=== PATIENT | male | born 1990 | race Caucasian/White ===

== ENCOUNTER → 2020-08-25 18:19 | Outpatient (CLI) | payer BC, SELFPAY ==
[2017-08-27 12:59] VITALS: BMI 56.1
== END ==
PROVIDERS: Referring Provider Dermatology; Visit Provider Dermatology
DX: Z48.817 Encounter for surgical aftercare following surgery on the skin and subcutaneous tissue (principal)
CPT/HCPCS: 87070; 87077; 87186; 87205

== ENCOUNTER 2021-01-31 15:38 | Emergency (ER) | payer BC, SELFPAY ==
[2021-01-31 15:39] VITALS: BP 186/92; PULSE 97; RESP 16; TEMP 36.6; O2SAT 97; BMI 63.6
--- NOTE | 2021-01-31 15:45 | RAD_ITS ---
STUDY: X-RAY - RIGHT ANKLE REASON FOR EXAM: Male, 30 years old. ankle injury TECHNIQUE: 3 view(s) of the ankle. COMPARISON: None. FINDINGS: Normal visualized distal tibia and fibula. Normal medial and lateral malleoli. Normal tibiotalar articulation and ankle mortise. Normal visualized talus and calcaneus. The visualized subtalar, talonavicular, calcaneocuboid and tarsal articulations are normal. The soft tissue structures are unremarkable. RAD/Ankle min 3 Views IMPRESSION: Normal x-ray examination of the ankle. Electronically Signed: Antonio Cedeon MD at 16:11 EDT Tel , Service support ,
--- NOTE | 2021-01-31 21:14 | EDS_ITS ---
HPI History of Present Illness Chief Complaint: Lower Extremity Injury Narrative Narrative: 30-year-old male stating that he fell in his driveway because it was wet and muddy and he twisted his right ankle. He is ambulatory at his house and in the ED. He has mild pain without swelling or bruising. He denies any knee pain. He denies other injury at this time. [facility] Medical History Hypertension Shortness of breath Home Medications duloxetine 30 mg PO DAILY 01/31/21 [History Last Taken Unknown] Allergy/AdvReac Type Severity Reaction Status Date / Time amoxicillin Allergy Nausea/Vom/ Verified 08/27/17 13:00 Diarrhea Social History Smoking Status: Never smoker ROS ROS ED Constitutional Constitutional ED: Denies fever(s) or subjective Eyes Eyes: Denies blurry vision or diplopia ENT ENT ED: Denies rhinorrhea or sore throat Cardiovascular Cardiovascular: Denies chest pain, palpitations or racing heartbeat Respiratory/Chest Respiratory/Chest: Denies cough, dyspnea or sputum Gastrointestinal Gastrointestinal: Denies abdominal pain, nausea or vomiting Genitourinary Genitourinary ED: Denies dysuria or hematuria Musculoskeletal Musculoskeletal: Reports other Details: Right ankle pain ; Denies back pain or neck pain Integumentary Denies abscess or rash Neurologic Neurologic: Denies headache(s) or paresthesias Psychiatric Psychiatric: Denies anxiety or depression EXAM Physical Exam Const Vital Signs: 01/31/21 15:39 Temperature 97.8 F Temperature Source Temporal Pulse Rate 97 Respiratory Rate 16 Blood Pressure 186/92 H Blood Pressure Mean 123 Pulse Ox 97 Oxygen Delivery Method Room Air Positive well nourished General Appearance ED: NAD HEENT normocephalic and atraumatic Resp normal respiratory effort and clear to auscultation bilaterally Cardio regular rate and regular rhythm Extremity Extremity Narrative: Mild tenderness to palpation of the right lateral malleoli. There is no swelling or ecchymosis present. Right foot is neurovascular intact retractable all 5 toes. No pain over the proximal fibula. Psych mental status grossly normal Skin Lesions: no lesions Rashes: no rashes MDM MDM MDM Narrative Medical decision making narrative: Patient presenting with right ankle pain. He is ambulatory. His physical exam is unremarkable. X-ray of the right ankle and my interpretation shows no acute fracture or subluxation. Patient is placed in Yuri wrap and Aircast. He denies needing crutches. He will be discharged home in stable condition. Impression: 1. Right ankle sprain Radiography Diagnostic Testing: Radiology Impression Ankle X-Ray 01/31/21 15:45 IMPRESSION: Normal x-ray examination of the ankle. Electronically Signed: Antonio Cedeno MD at 16:11 EDT Tel , Service support , Discharge Plan Triage Chief Complaint: Lower Extremity Injury ED Provider: Mark Verdugo Dx/Rx/DC Orders Instructions: ED Ankle Sprain (Adult) Prescriptions: No Action duloxetine 30 mg capsule,delayed release(DR/EC) 30 mg PO DAILY RF: 0 Primary Care Provider: Dariela Corado Referrals: Tamra Simental MD [STAFF PHYSICIAN] - As soon as possible Care Physician,No Primary [NON-STAFF] - Disposition Disposition: Home, Self Care Discharge Date/Time: 01/31/21 16:46
== END 2021-01-31 16:46 | disposition home or self-care (01) ==
LOC: ED 16:41
PROVIDERS: Emergency Provider Student in an Organized Health Care Education/Training Program; PCP Internal Medicine
DX: S93.401A Sprain of unspecified ligament of right ankle, initial encounter (principal); X50.1XXA Overexertion from prolonged static or awkward postures, initial encounter; Z79.899 Other long term (current) drug therapy
CPT/HCPCS: 73610; 99283

== ENCOUNTER 2023-07-25 15:45 | Emergency (ER) | payer OTHER, SELFPAY ==
[2023-07-25 15:46] VITALS: BP 161/83; PULSE 105; RESP 16; TEMP 36.4; O2SAT 98
--- NOTE | 2023-07-25 15:58 | EKG12_ITS ---
Test Reason : Blood Pressure : / mmHG Vent. Rate : 086 BPM Atrial Rate : 086 BPM P-R Int : 144 ms QRS Dur : 098 ms QT Int : 366 ms P-R-T Axes : 045 -01 011 degrees QTc Int : 437 ms Normal sinus rhythm Normal ECG Confirmed by TARIQ HAIRSTON, LINDA ([id number]), purchasing expeditor ZBIGNIEW LARSEN ([id number]) on 07/26/2023 10:09:59 AM Referred By: Confirmed By:ILNDA POTTER MD
--- NOTE | 2023-07-25 16:11 | RAD_ITS ---
INDICATION: chest pain EXAMINATION/TECHNIQUE: X-RAY - XR Chest 1 View COMPARISON: None. FINDINGS: The lungs are clear. The cardiomediastinal silhouette is unremarkable. No pleural effusion or pneumothorax. No acute osseous abnormalities. RAD/Chest 1 View (Portable) IMPRESSION: No acute radiographic abnormalities. Electronically Signed: Nicola Olivas MD at 17:35 EST ,
[2023-07-25 16:13] LABS: Absolute Neutrophil Count 3.2 X10^3/uL (2.0-7.7); Basophil# 0.05 X10^3/uL; Basophil% 0.8 % (0-1); Eosinophil# 0.16 X10^3/uL; Eosinophils% 2.6 % (0-5); Hematocrit 45.5 % (40-54); Hemoglobin 14.9 g/dL (13.0-16.5); Lymphocyte % 38.8 % (19-41); Mean Corp Hgb Conc 32.7 g/dL (32-36); Mean Corpuscular Hgb 28.7 pg (27.0-32.0); Mean Corpuscular Volume 87.7 fL (80-94); Mean Platelet Vol. 10.2 fl (6.2-12.0); Monocyte# 0.38 X10^3/uL; Monocyte% 6.1 % (0-10); NRBC Flagged by Analyzer 0 % (0-5); Neutrophil # 3.17 X10^3/uL (2.7-7.7); Neutrophil % 51.2 % (47-70); Platelet Count 263 K/mm3 (150-450); RBC Distribution Width CV 12.8 % (11.6-14.6); RBC Distribution Width SD 40.9 fl (35.1-43.9); Red Blood Count 5.19 M/mm3 (4.6-6.2); White Blood Count 6.2 K/mm3 (4.4-11.0)
[2023-07-25 16:15] VITALS: BP 146/72; BP 167/96; BP 182/119; PULSE 85; PULSE 91; PULSE 99
[2023-07-25 16:36] LABS: Anion Gap 6 (5-15); BUN 12 mg/dL (7-18); Calcium,Total 9.4 mg/dL (8.5-10.1); Chloride 108 mmol/L (98-107); EST Glomerular Filtration Rate 74 mL/min (>60); Est Glom Filt Rate - Afr Amer 90 mL/min (>60); Glucose 125 mg/dL (74-106); Potassium 3.8 mmol/L (3.5-5.1); Sodium Level 141 mmol/L (136-145); Troponin-I HS 4 pg/mL (3.0-78.0)
[2023-07-25 17:07] VITALS: O2SAT 96
[2023-07-25 17:08] VITALS: BP 156/96
--- NOTE | 2023-07-25 17:29 | EX.ED.DYSGE1 ---
HPI History of Present Illness Chief Complaint: Syncope Narrative Narrative: 33-year-old male presenting with an episode of syncope patient states he was on the toilet having a bowel movement and postop started to feel little lightheaded. He stood up once and then states he fainted. He fell he does admit he hit his head but he does not have any visual disturbance, headache, nausea, vomiting. He states he was out for second and was able to get up and walk after the fact reports incident for his father who called relatives on the toilet.Patient states currently feels well. No chest pain, palpitations, shortness of breath. No fever, chills. No nausea, vomiting. No headache currently. Patient states has been otherwise healthy is feeling better prior to this. Denies cardiac history. No history of cardiac in the family which occurred suddenly. No history of cardiac disease at young age. [facility] Medical History Hypertension Shortness of breath Home Medications duloxetine 30 mg capsule,delayed release 30 mg PO DAILY 01/31/21 [History Last Taken Unknown] Allergy/AdvReac Type Severity Reaction Status Date / Time amoxicillin AdvReac Nausea/Vom/ Verified 07/25/23 15:59 Diarrhea Social History Smoking Status: Never smoker ROS ROS ED Constitutional Constitutional ED: Denies chills, fever(s) or sweats Eyes Eyes: Denies blurry vision or change in vision ENT ENT ED: Denies ear pain or sore throat Cardiovascular Cardiovascular: Denies chest pain, palpitations or racing heartbeat Respiratory/Chest Respiratory/Chest: Denies cough, dyspnea or sputum Gastrointestinal Gastrointestinal: Denies abdominal pain, constipation, diarrhea, nausea or vomiting Genitourinary Genitourinary ED: Denies dysuria, hematuria or urinary frequency Musculoskeletal Musculoskeletal: Denies arthralgias, myalgias or neck pain Integumentary Denies abscess, Abrasions or rash Neurologic Neurologic: Denies headache(s), paresthesias or weakness Psychiatric Psychiatric: Denies anxiety, depression, suicidal ideation or suicidal thoughts Endocrine Endocrinology: Denies polydipsia or polyuria EXAM Physical Exam Const Vital Signs: 07/25/23 15:46 07/25/23 16:15 07/25/23 17:07 Temperature 97.6 F L Temperature Source Temporal Pulse Rate 105 H Pulse Rate [Lying] 85 Pulse Rate [Sitting (for 1 minute prior to obtaining)] 91 Pulse Rate [Standing (for 1 minute prior to obtaining)] 99 Respiratory Rate 16 Respiratory Effort Blood Pressure 161/83 H Blood Pressure [Lying] 146/72 H Blood Pressure [Sitting (for 1 minute prior to obtaining)] 167/96 H Blood Pressure [Standing (for 1 minute prior to obtaining)] 182/119 H Blood Pressure Mean 109 Blood Pressure Mean [Lying] 96 Blood Pressure Mean [Sitting (for 1 minute prior to obtaining)] 119 Blood Pressure Mean [Standing (for 1 minute prior to obtaining)] 140 Pulse Ox 98 96 Oxygen Delivery Method Room Air Room Air 07/25/23 17:08 07/25/23 17:08 Temperature Temperature Source Pulse Rate Pulse Rate [Lying] Pulse Rate [Sitting (for 1 minute prior to obtaining)] Pulse Rate [Standing (for 1 minute prior to obtaining)] Respiratory Rate Respiratory Effort Normal Blood Pressure 156/96 H Blood Pressure [Lying] Blood Pressure [Sitting (for 1 minute prior to obtaining)] Blood Pressure [Standing (for 1 minute prior to obtaining)] Blood Pressure Mean 116 Blood Pressure Mean [Lying] Blood Pressure Mean [Sitting (for 1 minute prior to obtaining)] Blood Pressure Mean [Standing (for 1 minute prior to obtaining)] Pulse Ox Oxygen Delivery Method Positive well nourished General Appearance ED: NAD; Negative for pallor HEENT Reports moist mucous membranes Eyes PERRL and EOMs intact bilaterally Neck no lymphadenopathy Chest Wall inspection of chest normal Resp normal respiratory effort and clear to auscultation bilaterally Auscultation: Negative for rales, rhonchi or wheezes Cardio regular rate and regular rhythm GI normal to inspection, nondistended, normoactive bowel sounds Neuro oriented x3 and CN's II-XII intact bilaterally Sensorium / Orientation: alert Motor Exam: strength 5/5 throughout Psych mental status grossly normal Skin no rashes or lesions noted General Skin Exam: Negative for jaundice or pallor MDM MDM MDM Narrative Medical decision making narrative: Patient presenting with syncopal episode. Differential includes dehydration, anemia, orthostatic hypotension, vasovagal syncope. CBC was obtained to assess for blood cell count, hemoglobin. BMP to assess renal function, electrolytes, glucose. High-sensitivity troponin EKG to assess for ischemia. CBC and BMP unremarkable. High-sensitivity troponin is 4. EKG sinus rhythm at 86 bpm without sign of ischemic change or ectopy on my interpretation. Chest x-ray shows no acute process on my interpretation. Patient symptoms most consistent with a vasovagal syncope as he was going to the restroom prior to having episode. We discussed this at length. Orthostatic vital signs are negative. Patient did have questions about his elevated blood pressures today. I recommend he keep his blood pressure diary. He states he can borrow his father's blood pressure cuff. Return precautions were discussed. Impression: 1. Syncope Lab Data Attestation: I reviewed the patient's lab results. Labs: Laboratory Results - last 24 hr 07/25/23 16:05 WBC 6.2 RBC 5.19 Hgb 14.9 Hct 45.5 MCV 87.7 MCH 28.7 MCHC 32.7 RDW Std Deviation 40.9 RDW Coeff of Nitza 12.8 Plt Count 263 MPV 10.2 Immature Gran % (Auto) 0.500 Neut % (Auto) 51.2 Lymph % (Auto) 38.8 [place] % (Auto) 6.1 Eos % (Auto) 2.6 Baso % (Auto) 0.8 Absolute Neuts (auto) 3.2 Absolute Lymphs (auto) 2.40 Nucleated RBC % 0 Sodium 141 Potassium 3.8 Chloride 108 H Carbon Dioxide 27.0 Anion Gap 6 BUN 12 Creatinine 1.20 Est GFR (MDRD) Af Amer 90 Est GFR (MDRD) Non-Af 74 BUN/Creatinine Ratio 10.0 Glucose 125 H Calcium 9.4 Troponin I High Sens 4 Radiography Diagnostic Testing: Clinical Impression(s) from Imaging Studies Chest X-Ray 07/25/23 16:11 IMPRESSION: No acute radiographic abnormalities. Electronically Signed: Nicola Olivas MD at 17:35 EST , Discharge Plan Triage Chief Complaint: Syncope ED Provider: Mark Verdugo Dx/Rx/DC Orders Instructions: ED Near-Fainting- Vagal Reaction Prescriptions: No Action duloxetine 30 mg capsule,delayed release(DR/EC) 30 mg PO DAILY Patient Comments: TAKE 1 CAPSULE BY MOUTH ONCE DAILY MAY INCREASE TO 1 CAPSULE TWICE DAILY IN 2 4 WEEKS IF NEEDED Primary Care Provider: Dariela Corado Referrals: Dariela Corado MD [Primary Care Provider] - Disposition Disposition: Home, Self Care Discharge Date/Time: 07/25/23 17:36
--- OUTSIDE RECORDS SUMMARY | 2023-07-25 17:29 | XMS RPT_ITS | CCD ---
Author Name Unknown Address [address] [place] [address] Organization [facility] Care Team Providers Care Pipe Wrapping Machine Operator Name Role Phone Rob Corado MD Primary Care Provider JEFFY HUGHES Attending Unavailable GRISEL SHELTON Referring Unavailable ROB CORADO Primary Care Unavailable GRISEL SHELTON Referring Unavailable ROB CORADO Primary Care Unavailable GRISEL SHELTON Referring Unavailable ROB CORADO Primary Care Unavailable GRISEL SHELTON Attending Unavailable ROB CORADO Primary Care Unavailable Allergies Allergy Classification Reported Allergen(s) Allergy Type Date of Onset Reaction(s) Facility (5 sources) Amoxicillin; Translations: [AMOXICILLIN] Drug Allergy 09-23-2006 [facility] Work Phone: Medications Completed/Discontinued Medications Medication Drug Class(es) Dates Sig (Normalized) Sig (Original) DULoxetine 30 mg delayed release oral capsule (5 sources) Serotonin and Norepinephrine Reuptake Inhibitor Start: 07-15-2020 End: 02-21-2023 take 1 capsule by mouth once daily, then take 1 capsule by mouth twice daily DULoxetine (CYMBALTA) 30 mg capsule Indications: Depression, unspecified depression type Take 1 capsule by mouth once daily. make increase to one capsule twice daily in 2 to 4 weeks if needed 30 capsule 11 02/21/2023 Active Problems Active Problems Problem Classification Problem Date Documented Da te Episodic/Chronic Headache; including migraine (1 source) Headache; Translations: [Nonintractable episodic headache, unspecified headache type] 02-21-2023 Episodic Immunizations and screening for infectious disease (1 source) Patient encounter status; Translations: [Encounter for immunization] 02-21-2023 Episodic Mood disorders (5 sources) Depressive disorder; Translations: [Other specified depressive episodes] Onset: 09-23-2006 09-23-2006 Chronic Other connective tissue disease (1 source) Pain in right foot; Translations: [Pain in right foot] 02-21-2023 Episodic Other ear and sense organ disorders (1 source) Otalgia, right ear; Translations: [Otalgia, unspecified] Episodic Other injuries and conditions due to external causes (1 source) Villarreal injury; Translations: [Unspecified injury of left lower leg, initial encounter] 02-21-2023 Episodic Other male genital disorders (1 source) Bilateral testicular pain; Translations: [Right testicular pain] 02-21-2023 Episodic Other male genital disorders (1 source) Large testicle; Translations: [Other specified disorders of the male genital organs] 02-21-2023 Episodic Other male genital disorders (1 source) Disorder of male genital organ; Translations: [Hydrocele, unspecified] Onset: 03-01-2023 03-01-2023 Episodic Other male genital disorders (1 source) Hydrocele, unspecified; Translations: [Hydrocele, bilateral] Onset: 03-01-2023 Episodic Other male genital disorders (1 source) Right testicular pain; Translations: [Pain in both testicles] Onset: 03-01-2023 Episodic Other male genital disorders (1 source) Left testicular pain; Translations: [Pain in both testicles] Onset: 03-01-2023 Episodic Other male genital disorders (1 source) Other specified disorders of the male genital organs; Translations: [Enlarged testicle] Onset: 03-01-2023 Episodic Other nervous system disorders (4 sources) Carpal tunnel syndrome; Translations: [Carpal tunnel syndrome, unspecified upper limb] Onset: 03-30-2011 07-15-2020 Chronic Other nervous system disorders (1 source) Numbness of foot ; Translations: [Anesthesia of skin] 02-21-2023 Episodic Other non-traumatic joint disorders (1 source) Pain in elbow; Translations: [Pain in right elbow] 02-21-2023 Episodic Other nutritional; endocrine; and metabolic disorders (5 sources) Body mass index 40+ - severely obese; Translations: [Morbid (severe) obesity due to excess calories] Onset: 09-23-2006 11-21-2017 Chronic Other nutritional; endocrine; and metabolic disorders (1 source) Morbid (severe) obesity due to excess calories; Translations: [Obesity, Class III, BMI 40-49.9 (morbid obesity) (HCC)] Onset: 11-21-2017 Chronic Other upper respiratory infections (1 source) Viral upper respiratory tract infection; Translations: [Acute upper respiratory infection, unspecified] Episodic Past or Other Problems Problem Classification Problem Date Documented Date Episodic/Chronic Other circulatory disease (4 sources) Elevated blood-pressure reading without diagnosis of hypertension; Translations: [Elevated blood-pressure reading, without diagnosis of hypertension] Onset: 09-23-2006 09-23-2006 Episodic Other complications of (4 sources) Gestational trophoblastic disease; Translations: [Hydatidiform mole, unspecified] Onset: 03-30-2011 07-15-2020 Episodic Residual codes; unclassified (4 sources) Family history of disorder; Translations: [Family history of other specified conditions] Onset: 09-23-2006 09-23-2006 Episodic Results Test Name Value Interpretation Reference Range Facil ity Vital Signs Date Time Vital Sign Value Performing Clinician Jairo pantoja 02-21-2023 07:46-0400 Body height 179.1 cm Rgisel Shelton WHEEL AND CASTER REPAIRER.CLINICAL DATA MANAGEMENT DIRECTOR Work Phone: [facility] 02-21-2023 07:46-0400 Body weight 202.3 kg Grisel Shelton WHEEL AND CASTER REPAIRER.CLINICAL DATA MANAGEMENT DIRECTOR Work Phone: [facility] 02-21-2023 07:46-0400 Diastolic blood pressure 82 mm[Hg] Grisel Shelton WHEEL AND CASTER REPAIRER.CLINICAL DATA MANAGEMENT DIRECTOR Work Phone: [facility] 02-21-2023 07:46-0400 Respiratory rate 16 /min Grisel Shelton WHEEL AND CASTER REPAIRER.CLINICAL DATA MANAGEMENT DIRECTOR Work Phone: [facility] 02-21-2023 07:46-0400 Systolic blood pressure 132 mm[Hg] Grisel Shelton WHEEL AND CASTER REPAIRER.CLINICAL DATA MANAGEMENT DIRECTOR Work Phone: [facility] 11-05-2021 19:24-0400 Body temperature 98.49 [degF] Mireya Polo PA-C Work Phone: [facility] 11-05-2021 19:24-0400 Body weight 196.86 kg Mireya Polo PA-C Work Phone: [facility] 11-05-2021 19:24-0400 Diastolic blood pressure 86 mm[Hg] Mireya Athy PA-C Work Phone: [facility] 11-05-2021 19:24-0400 Heart rate 90 /min Mireya Athy PA-C Work Phone: [facility] 11-05-2021 19:24-0400 Respiratory rate 18 /min Mireya Athy PA-C Work Phone: [facility] 11-05-2021 19:24-0400 SaO2% (BldA) [Mass fraction] 97 % Mireya Athy PA-C Work Phone: [facility] 11-05-2021 19:24-0400 Systolic blood pressure 138 mm[Hg] Mireya Athy PA-C Work Phone: [facility] Encounters Encounter Date Encounter Type Care Provider Facility Start: 03-01-2023 End: 03-02-2023 ambulatory JEFFY MONTEROONEY Facility:[facility] Start: 02-28-2023 Chart abstracting Afua orlando [facility] Work Phone: Psychology Start: 02-28-2023 End: 02-28-2023 ambulatory GRISEL SHELTON Facility:[facility] Start: 02-21-2023 Telephone encounter Afua mccarthy [facility] Work Phone: Psychology Plan of Treatment Date Care Activity Detail Author Start: 03-18-2023 Influenza vaccination [facility] Start: 03-18-2022 Influenza vaccination INFLUENZA (Season Ended) [facility] Start: 01-25-2022 COVID-19 VACCINE (3 - Booster for Pfizer series) COVID-19 VACCINE (3 - Booster for Pfizer series) [facility] Start: 11-05-2021 End: 11-19-2021 Influenza virus A and B RNA and SARS-CoV-2 (COVID-19) N gene panel - Respiratory specimen by JOVANY with probe detection COVID WITH FLUA+B, ROUTINE Microbiology Routine Viral URI Expected: 11/05/2021, Expires: 11/19/2021 [facility] Work Phone: Immunizations Immunization Date Immunization Notes Care Provider Juvencio felipe 03-07-2006 hepatitis B vaccine, pediatric or pediatric/adolescent dosage Mireya IVY-Slava Work Phone: [facility] Work Phone: 03-07-2006 tetanus toxoid, reduced diphtheria toxoid, and acellular pertussis vaccine, adsorbed Mireya Christ PA-C Work Phone: [facility] Work Phone: 03-07-2006 hepatitis B vaccine, unspecified formulation Afua Guthrieotto [facility] Work Phone: [facility] 11-30-2002 hepatitis B vaccine, pediatric or pediatric/adolescent dosage Mireya IVY-C Work Phone: [facility] Work Phone: NEGATED: Highlighted row has not occurred!04-05-2023 COVID-19 vaccine, age 12+ yr, bivalent (PFIZER-BIONTECH) Grisel Shelton WHEEL AND CASTER REPAIRER.CLINICAL DATA MANAGEMENT DIRECTOR Work Phone: [facility] Work Phone: NEGATED: Highlighted row has not occurred!04-05-2023 hepatitis B vaccine, adult dosage Grisel Shelton WHEEL AND CASTER REPAIRER.CLINICAL DATA MANAGEMENT DIRECTOR Work Phone: [facility] Work Phone: NEGATED: Highlighted row has not occurred!04-05-2023 tetanus toxoid, reduced diphtheria toxoid, and acellular pertussis vaccine, adsorbed Grisel Shelton WHEEL AND CASTER REPAIRER.CLINICAL DATA MANAGEMENT DIRECTOR Work Phone: [facility] Work Phone: Payers Date Payer Category Payer Unknown [employer]OLO FRANCO PPO [id number] 2019-Present [phone] [address] [place] [address] PPO [id number] 2018 Private Health Insurance [facility] [employer] CHOICE PLUS [id number] 2018-Present [phone] [address] [address] [place] [address] [facility] [place] [place] [id number] 2018 Unknown [id number] Social History Date Type Detail Facility Start: 07-15-2020 End: 02-21-2023 Tobacco smoking status NHIS Never smoked tobacco [facility] Work Phone: Start: 07-15-2020 End: 02-21-2023 Tobacco use and exposure Smokeless tobacco non-user [facility] Work Phone: Start: 11-05-2021 End: 02-21-2023 Alcohol intake Current drinker of alcohol (finding) [facility] Start: 08-14-2020 History SDOH Alcohol Frequency 4 [facility] Start: 08-14-2020 History SDOH Alcohol Std Drinks 1 [facility] Start: 08-14-2020 History SDOH Alcohol Binge 2 [facility] Start: 07-15-2020 History SDOH Alcohol Comment occasionally [facility] Start: 08-14-2020 History SDOH Social Connections Phone 5 [facility] Start: 08-14-2020 History SDOH Social Connections Meetings 98 [facility] Start: 08-14-2020 History SDOH Social Connections Living 7 [facility] Start: 08-14-2020 History SDOH Stress 3 [facility] Start: 08-13-2020 Education 16 [facility] Start: 1990 Sex Assigned At Male [facility] Start: 02-14-2023 End: 03-01-2023 History of Social function [facility] Start: 02-14-2023 End: 03-01-2023 Social connection and isolation panel [facility] Do you belong to any clubs or organizations such as presybeterian groups, unions, fraternal or athletic groups, or school groups? Yes [facility] Are you now , , , , never or living with a partner? Never [facility] How often to you hav e a drink containing alcohol? Monthly or less [facility] How many standard dr inks containing alcohol do you have on a typical day? 1 or 2 [facility] How often do you hav e 6 or more drinks on 1 occasion? Never [facility] How hard is it for y ou to pay for the very basics like food, housing, medical care, and heating Not very hard [facility] Adult Depression Screening Assessment 2 [facility] Do you feel stress - tense, restless, nervous, or anxious, or unable to sleep at night because your mind is troubled all the time - these days [OSQ] To some extent [facility] (I/We) worried wheth er (my/our) food would run out before (I/we) got money to buy more. Sometimes true [facility] In the past 12 month s, was there a time when you were not able to pay the mortgage or rent on time? No [facility] Start: 08-14-2020 Gender identity Identifies as male gender (finding) [facility] Start: 08-14-2020 Sexual orientation Homosexual (finding) [facility] Clinical Notes 11-05-2021 to 03-01-2023 Afua Nguyen [facility] - 02/28/2023 8:51 AM EDTTelephone Encounter - Afua Nguyen [facility] - 02/21/2023 10:56 AM Grisel Rosales APRN.CLINICAL DATA MANAGEMENT DIRECTOR - 02/21/2023 8:00 AM EDTPatient Instructions Note Date & Type Note Facility 03-01-2023 Note HNO ID: [id number] Author: Jeffy Hughes PA-C Service: ? Author Type: Physician Geothermal Hvac Technician Type: Progress Notes Filed: 03/01/2023 5:10 PM Note Text: [facility] NEW CONSULT PATIENT CLINIC NOTE SERVICE DATE: 03/01/2023 SERVICE TIME: 4:11 PM NAME: Arden Dickson Consultation requested by Rob Corado MD for an opinion regarding Bilateral hydrocele My final recommendations communicated back to the requesting physician by way of our shared Medical record. CHIEF COMPLAINT: Bilateral Hydrocele HISTORY OF PRESENT ILLNESS: Arden Dickson is a 32 year old male presenting for New Patient Consult for Bilateral Hydrocele Left > Right The patient reports he has had pain L > R for about 1 year He also has so pelvic floor dysfunction and ejaculation at times helps with the testicle pain Discuss Hydrocelectomy and consult with PFPT there is a component of pelvic Floor LUTS: No Other symptoms: None LABS: No results found for: TESTOST No results found for: TESTFREE No results found for: PSA Hematocrit (%) Date Value 02/21/2023 50.9 07/15/2020 45.4 No results found for: PSA Creatinine Date Value Ref Range Status 02/21/2023 0.90 0.73 - 1.22 mg/dL Final 07/15/2020 0.89 0.73 - 1.22 mg/dL Final MEDICATIONS: naproxen (NAPROSYN) 500 mg tablet Take 1 tablet by mouth twice daily as needed for pain (for pain/inflammation, for headache). Take with food. DULoxetine (CYMBALTA) 30 mg capsule Take 1 capsule by mouth once daily. make increase to one capsule twice daily in 2 to 4 weeks if needed PAST MEDICAL HISTORY: PAST MEDICAL HISTORY Diagnosis Date Asthma an issue in childhood; has not needed treatment as adult Depression HTN (hypertension) Hydrocele 03/01/2023 Bilateral- left is larger PAST SURGICAL HISTORY: No past surgical history on file. FAMILY HISTORY: FAMILY HISTORY Problem Relation Age of Onset Coronary Artery Disease Mother age 49yo had 3 stents placed Coronary Artery Disease Maternal Grandfather from heart attack; ?under age 55 Hypertension Mother Hypertension Maternal Grandmother Hypertension Maternal Grandfather Hypertension Maternal Aunt Diabetes Maternal Grandmother Diabetes Maternal Aunt Thyroid Maternal Grandfather Hypothyroidism Thyroid Maternal Aunt Hypothyroidism Thyroid Mother Hypothyroidism Colon Cancer Paternal Grandmother from colon cancer; was diagnosed in her 80's Breast Cancer Paternal Aunt Breast Cancer Paternal Aunt Psychiatry Mother Depression and anxiety runs in the family Psychiatry Father Psychiatry Maternal Grandmother Psychiatry Maternal Grandfather Psychiatry Paternal Grandmother Psychiatry Paternal Grandfather Psychiatry Maternal Aunt Psychiatry Maternal Uncle Psychiatry Paternal Aunt Psychiatry Paternal Uncle SOCIAL HISTORY: Social Connections: Socially Isolated (02/14/2023) Social Connection and Isolation Panel [NHANES] Frequency of Communication with Friends and Family: Once a week Frequency of Social Gatherings with Friends and Family: Once a week Attends Yarsani Services: Never Active Member of Clubs or Organizations: Yes Attends Club or Organization Meetings: More than 4 times per year Marital Status: Never REVIEW OF SYSTEMS: GENERAL: No fever, chills, weight loss, or fatigue. ENMT: Negative CARDIOVASCULAR:NO CHEST PAIN, PALPITATIONS, ANKLE EDEMA RESPIRATORY: No chronic cough, wheezing, dyspnea, hemoptysis. GENITOURINARY: SEE HPI MUSCULOSKELETAL:NO CHRONIC BACK PAIN, ARTHRITIS, CHRONIC NECK PAIN SKIN: NO VARICOSE VEINS, RASH, ABNORMAL ITCHING HEME/LYMPH/IMMUNE:Negative for prolonged bleeding, bruising easily or swollen nodes NEUROLOGICAL: NO HEADACHES, NUMBNESS, SEIZURES, STROKE DIABETES: No All other systems reviewed and are negative PHYSICAL EXAMINATION: There were no vitals taken for this visit. GENERAL: WNL nutrition, no deformities, healthy appearing NEURO: Awake, alert and oriented x 3 and Normal gait PSYCH: No signs of depression, anxiety, or agitation ENMT (Ear, Nose, Mouth, Throat): No masses, adenopathy, icterus. Thyroid nonpalpable RESP: NL effort, no retractions or purse-lip breathing. CV: No extremity swelling, varices, edema, pallor, erythema GASTROINTESTINAL: Soft, nontender, nondistended, no masses. HERNIAS: None SKIN: No rash, lesions No palpable lymphadenopathy MUSCULOSKELETAL: Extremities normal. No deformities, edema, clubbing or skin discoloration. GENITOURINARY: MALE EXAM: Hydroceles: Bilaterally L>R PROBLEM LIST REVIEW: Yes LABS: Results for orders placed or performed in visit on 02/21/23 COMP METABOLIC PANEL Result Value Ref Range Protein, Total 7.7 6.3 - 8.0 g/dL Albumin 4.6 3.9 - 4.9 g/dL Calcium, Total 10.2 8.5 - 10.2 mg/dL Bilirubin, Total 0.8 0.2 - 1.3 mg/dL Alkaline Phosphatase 93 38 - 11 (more content not included)... [facility] 02-28-2023 Note HNO ID: [id number] Author: Rachel Fletcher RDMS Service: ? Author Type: Medical Research Associate Type: Progress Notes Filed: 02/28/2023 10:34 AM Note Text: Radiology Service Progress Note PATIENT NAME: Arden Dickson DATE OF SERVICE: February 28, 2023 TIME: 10:34 AM PATIENT IDENTITY VERIFICATION COMPLETED USING TWO (2) IDENTIFIERS: Name and Date of confirmed by patient verbally. FALL SCREENING: Has the patient had 2 falls in the last year or 1 fall with injury or currently using an Ambulatory Assistive Device (Walker, Cane, Wheelchair, Crutches, etc.)? No PATIENT GENDER DATA: Male PATIENT RELEVANT IMPLANT DATA REVIEWED: Not Applicable RADIOLOGY DEPARTMENT: Ultrasound PERIPHERAL IV DATA: Not applicable SIGNED BY: Rachel Fletcher RDMS February 28, 2023 10:34 AM [facility] 02-28-2023 Note HNO ID: [id number] Author: Afua Nguyen LPCC Service: ? Author Type: Therapist Type: Progress Notes Filed: 02/28/2023 8:51 AM Note Text: Behavioral Health Social Work Progress Note Patient identified for [facility] from: PCP Reason for referral: [facility] Behavioral Health Resources: Psychology - talk therapy [facility] encounter type: MyChart Message Attempts to Outreach: 3 attempts Referral made: Psychology - Internal, Psychology - External Psychology-Internal referral type: Therapy Psychology-External referral type: Therapy Reason for external referral: Wait times at [facility] too long, Patient choice Final Disposition: Resources given Patient Discharged?: Yes Patient reported that caregiver was able to meet their needs today?: N/A therapist sent patient MyChart follow up message offering assistance with linkage to behavioral health services. CHRIS Paulson-S February 28, 2023 [facility] 02-28-2023 History of Presen t illness Narrative Behavioral Health Social Work Progress Note Patient identified for [facility] from: PCP Reason for referral: [facility] Behavioral Health Resources: Psychology - talk therapy [facility] encounter type: MyChart Message Attempts to Outreach: 3 attempts Referral made: Psychology - Internal, Psychology - External Psychology-Internal referral type: Therapy Psychology-External referral type: Therapy Reason for external referral: Wait times at [facility] too long, Patient choice Final Disposition: Resources given Patient Discharged?: Yes Patient reported that caregiver was able to meet their needs today?: N/A therapist sent patient MyChart follow up message offering assistance with linkage to behavioral health services. HEIKE Paulson February 28, 2023 documented in this encounter [facility] 02-21-2023 Miscellaneous Notes Behavioral Health Social Work Progress Note Patient identified for [facility] from: PCP Reason for referral: Resources Behavioral Health Resources: Psychology - talk therapy [facility] encounter type: Telephone Encounter Attempts to Outreach: 1 attempt Referral made: Psychology - Internal, Psychology - External Psychology-Internal referral type: Therapy Psychology-External referral type: Therapy Patient Discharged?: No Patient reported that caregiver was able to meet their needs today?: N/A Phone call placed today that went to [employer]. Left my contact information and brief nature of call. Initial outreach also completed via [email or web address] sending list of in network providers with insurance. CHRIS Paulson-S February 21, 2023 documented in this encounter [facility] 02-21-2023 Note HNO ID: [id number] Author: Grisel Shelton APRN.CLINICAL DATA MANAGEMENT DIRECTOR Service: ? Author Type: Nurse Specialist Type: Progress Notes Filed: 04/05/2023 10:53 AM Note Text: SUBJECTIVE: HEPATITIS B(3 of 3 - 3-dose series) due on 05/02/2006 DTAP,TDAP,TD(2 - Td or Tdap) due on 03/07/2016 COVID-19 VACCINE(3 - Pfizer series) due on 10/23/2021 HPI Arden Dickson is a 32 year old male. PMH significant for ACTIVE PROBLEM LIST Depressive Disorder, Not Elsewhere Classified Elevated Blood Pressure Reading Without Diagnosis of Hypertension Obesity, Class Iii, Bmi 40-49.9 (Morbid Obesity) (Hcc) Family History of Other Condition Carpal Tunnel Syndrome Hydatidiform Mole HPI excerpted from previous visit: Presents today for physical exam. Current PCP:no current last seen by statistical financial analyst Last seen: about 10 years ago,[facility] physicians Last labs: several years ~ 5 years ER or hospitalization: a few years ago, had chest pains, unknown cause. MSK cause Current medical problems: Depression currently. Notes worse now. Has not taken since 16 years old. Cymbalta, did work. Did go to counseling, counseling center, Dr. Slater. BP medications age 19 years. Establish care: yes Mood has been decreased for about 1-2 years. Notes trouble sleeping, less hours than usual. No voiced SI. HI. To the counseling center in the past but not recently. Not certain that he wants to return to counseling at this time. Notes mole on his back present for about 20 years. Notes he was advised to have this removed by his statistical financial analyst. He notes recently mole is changed, no change in color. Notes weight gain. Standard [place] diet. Does consume junk food and soda. No routine exercise. Maternal aunt with thyroid disease Last in office visit 2019. Video visit 2020. Has canceled all other appointments. Has not yet seen PCP. Lab work was completed at his last visit due to weight gain. He was referred to dietitian. He was continued on duloxetine and referred to counseling center for depression. Presents with his mother that helps with HPI. Presents today regarding multiple complaints. Appointment was made initially for testicular pain. He reports this has been present for approximately 6 months. Notes mild discomfort initially but seeming worse now left testicle seems to increase in size versus right. No mass palpated. No injury as initial cause. Unclear what aggravates this. States no prior occurrence. Reports discomfort is improved with ejaculation. No reported prior vasectomy. Previously taking duloxetine for depression but quit taking it due to feeling improved. Did not return to counseling center when referred previously. Notes still with depression and would like to resume duloxetine and see a counselor. Weight is stable. SAD. No formal exercise. Reports right foot medial aspect numbness and right great toe numbness present for months or more. Right foot pain is present, increased with activity. Intermittent. Reports right-sided headache which is intermittent. Headache can last up to 2 or 3 days. Help with Excedrin. No prior history of migraine. No aura reported. He reports right elbow pain that feels like a pulled muscle. No injury. Aggravated by inactivity or too much activity. Helped with Tylenol. Reports a left villarreal injury 2 years ago which recently opened up with following a sunburn. All screening labs completed at [facility] December 2022. Review of Systems Constitutional: Positive for unexpected weight change. Respiratory: Negative. Cardiovascular: Negative. Endocrine: Negative. Psychiatric/Behavioral: Positive for dysphoric mood. Objective BP 132/82 Resp 16 Ht 179.1 cm (5' 10.5 ) Wt (!) 202.3 kg (446 lb) BMI 63.09 kg/m? Physical Exam Vitals and nursing note reviewed. Constitutional: General: He is not in acute distress. Appearance: He is obese. He is not ill-appearing, toxic-appearing or diaphoretic. HENT: Head: Normocephalic and atraumatic. Eyes: Conjunctiva/sclera: Conjunctivae normal. Neck: Thyroid: No thyroid mass, thyromegaly or thyroid tenderness. Cardiovascular: Rate and Rhythm: Normal rate and regular rhythm. Pulses: Carotid pulses are 2+ on the right side and 2+ on the left side. Radial pulses are 2+ on the right side and 2+ on the left side. Heart sounds: Normal heart sounds. Pulmonary: Effort: Pulmonary effort is normal. Breath sounds: Normal breath sounds. Abdominal: General: Bowel sounds are normal. Palpations: Abdomen is soft. Musculoskeletal: Right lower leg: No edema. Left lower leg: No edema. Skin: General: Skin is warm and dry. Neurological: General: No focal deficit present. Mental Status: He is alert and oriented to person, place, and time. Psychiatric: Attention and Perception: Attention normal. Mood and Affect: Mood and affect normal. Speech: Speech normal. Behavior: Behavior normal. Thought Content: Thou (more content not included)... [facility] 02-21-2023 History of Presen t illness Narrative SUBJECTIVE: HEPATITIS B(3 of 3 - 3-dose series) due on 05/02/2006 DTAP,TDAP,TD(2 - Td or Tdap) due on 03/07/2016 COVID-19 VACCINE(3 - Pfizer series) due on 10/23/2021 HPI Arden Dickson is a 32 year old male. PMH significant for ACTIVE PROBLEM LIST Depressive Disorder, Not Elsewhere Classified Elevated Blood Pressure Reading Without Diagnosis of Hypertension Obesity, Class Iii, Bmi 40-49.9 (Morbid Obesity) (Hcc) Family History of Other Condition Carpal Tunnel Syndrome Hydatidiform Mole HPI excerpted from previous visit: Presents today for physical exam. Current PCP:no current last seen by statistical financial analyst Last seen: about 10 years ago,[facility] physicians Last labs: several years ~ 5 years ER or hospitalization: a few years ago, had chest pains, unknown cause. MSK cause Current medical problems: Depression currently. Notes worse now. Has not taken since 16 years old. Cymbalta, did work. Did go to counseling, counseling center, Dr. Slater. BP medications age 19 years. Establish care: yes Mood has been decreased for about 1-2 years. Notes trouble sleeping, less hours than usual. No voiced SI. HI. To the counseling center in the past but not recently. Not certain that he wants to return to counseling at this time. Notes mole on his back present for about 20 years. Notes he was advised to have this removed by his statistical financial analyst. He notes recently mole is changed, no change in color. Notes weight gain. Standard [place] diet. Does consume junk food and soda. No routine exercise. Maternal aunt with thyroid disease Last in office visit 2019. Video visit 2020. Has canceled all other appointments. Has not yet seen PCP. Lab work was completed at his last visit due to weight gain. He was referred to dietitian. He was continued on duloxetine and referred to counseling center for depression. Presents with his mother that helps with HPI. Presents today regarding multiple complaints. Appointment was made initially for testicular pain. He reports this has been present for approximately 6 months. Notes mild discomfort initially but seeming worse now left testicle seems to increase in size versus right. No mass palpated. No injury as initial cause. Unclear what aggravates this. States no prior occurrence. Reports discomfort is improved with ejaculation. No reported prior vasectomy. Previously taking duloxetine for depression but quit taking it due to feeling improved. Did not return to counseling center when referred previously. Notes still with depression and would like to resume duloxetine and see a counselor. Weight is stable. SAD. No formal exercise. Reports right foot medial aspect numbness and right great toe numbness present for months or more. Right foot pain is present, increased with activity. Intermittent. Reports right-sided headache which is intermittent. Headache can last up to 2 or 3 days. Help with Excedrin. No prior history of migraine. No aura reported. He reports right elbow pain that feels like a pulled muscle. No injury. Aggravated by inactivity or too much activity. Helped with Tylenol. Reports a left villarreal injury 2 years ago which recently opened up with following a sunburn. All screening labs completed at [facility] December 2022. Review of Systems Constitutional: Positive for unexpected weight change. Respiratory: Negative. Cardiovascular: Negative. Endocrine: Negative. Psychiatric/Behavioral: Positive for dysphoric mood. Objective BP 132/82 Resp 16 Ht 179.1 cm (5' 10.5 ) Wt (!) 202.3 kg (446 lb) BMI 63.09 kg/m Physical Exam Vitals and nursing note reviewed. Constitutional: General: He is not in acute distress. Appearance: He is obese. He is not ill-appearing, toxic-appearing or diaphoretic. HENT: Head: Normocephalic and atraumatic. Eyes: Conjunctiva/sclera: Conjunctivae normal. Neck: Thyroid: No thyroid mass, thyromegaly or thyroid tenderness. Cardiovascular: Rate and Rhythm: Normal rate and regular rhythm. Pulses: Carotid pulses are 2+ on the right side and 2+ on the left side. Radial pulses are 2+ on the right side and 2+ on the left side. Heart sounds: Normal heart sounds. Pulmonary: Effort: Pulmonary effort is normal. Breath sounds: Normal breath sounds. Abdominal: General: Bowel sounds are normal. Palpations: Abdomen is soft. Musculoskeletal: Right lower leg: No edema. Left lower leg: No edema. Skin: General: Skin is warm and dry. Neurological: General: No focal deficit present. Mental Status: He is alert and oriented to person, place, and time. Psychiatric: Attention and Perception: Attention normal. Mood and Affect: Mood and affect normal. Speech: Speech normal. Behavior: Behavior normal. Thought Content: Thought content normal. Cognition and Memory: Cognition and memory normal. Judgment: Judgment normal. ALLERGIES Allergen Reactions Amoxicillin Vomiting Vomited after each time med was taken Medication naproxen (NAPROSYN) 500 mg tablet Take 1 tablet by mouth twice daily as needed for pain (for pain/inflammation, for headache). Take with food. DULoxetine (CYMBALTA) 30 mg capsule Take 1 capsule by mouth once daily. make increase to one capsule twice daily in 2 to 4 weeks if needed PAST MEDICAL HISTORY Diagnosis Date Asthma an issue in childhood; has not needed treatment as adult Depression HTN (hypertension) Social History Tobacco Use Smoking status: Never Smokeless tobacco: Never Substance Use Topics Alcohol use: Yes Comment: occasionally Drug use: Never Component Latest Ref Rng & Units 07/15/2020 WBC 3.70 - 11.00 k/uL 4.90 RBC 4.20 - 6.00 m/uL 5.06 Hemoglobin 13.0 - 17.0 g/dL 15.1 Hematocrit 39.0 - 51.0 % 45.4 MCV 80.0 - 100.0 fL 89.7 MCH 26.0 - 34.0 pG 29.8 MCHC 30.5 - 36.0 g/dL 33.3 RDW-CV 11.5 - 15.0 % 12.9 Platelet Count 150 - 400 k/uL 253 MPV 9.0 - 12.7 fL 10.6 Neut% % 62.0 Abs Neut (ANC) 1.45 - 7.50 k/uL 3.03 Lymph% % 25.5 Abs Lymph 1.00 - 4.00 k/uL 1.25 Harmon% % 8.2 Abs Harmon <0.87 k/uL 0.40 Eosin% % 3.5 Abs Eosin <0.46 k/uL 0.17 Baso% % 0.8 Abs Baso <0.11 k/uL 0.04 Nucleated Reds 0 /100 WBC 0.0 Absolute nRBC <0.01 k/uL <0.01 Diff Type Auto Diff Protein, Total 6.3 - 8.0 g/dL 6.8 Albumin 3.9 - 4.9 g/dL 4.3 Calcium 8.5 - 10.2 mg/dL 9.4 Bilirubin, Total 0.2 - 1.3 mg/dL 1.3 Alkaline Phosphatase 38 - 113 U/L 84 AST 14 - 40 U/L 33 Glucose 74 - 99 mg/dL 107 (H) BUN 9 - 24 mg/dL 10 Creatinine 0.73 - 1.22 mg/dL 0.89 Sodium 136 - 144 mmol/L 140 Potassium 3.7 - 5.1 mmol/L 3.7 Chloride 97 - 105 mmol/L 108 (H) CO2 22 - 30 mmol/L 24 Anion Gap 9 - 18 mmol/L 8 (L) ALT 10 - 54 U/L 42 eGFR- >60 eGFR-All Other Races . >60 HIV 12 Combo (Ag/Ab) Non Reactive Non Reactive HIV-1/2 AB Test Not Indicated HIV Interpretation Negative TSH 0.270 - 4.200 uU/mL 2.320 Hep C Antibody IA Negative Negative ASSESSMENT/PLAN: 1. Pain in both testicles - ICD9: 608.9, ICD10: N50.811, N50.812 (primary diagnosis) - CONSULT TO UROLOGY - US SCROTUM AND CONTENTS - US DOPPLER COMPLETE 2. Encounter for immunization - ICD9: V03.89, ICD10: Z23 - TDAP VACCINE, AGE 7+ YR (ADACEL, BOOSTRIX) - [email or web address] COVID-19 BIVALENT VACCINE, AGE 12+ YR - HEP B VACCINE, 3-DOSE, AGE 20+ YR (ENGERIX-B, RECOMBIVAX HB) 3. Obesity, Class III, BMI 40-49.9 (morbid obesity) (HCC) - ICD9: 278.01, ICD10: E66.01 - CONSULT TO NUTRITION THERAPY - CONSULT BARIATRIC/METABOLIC INSTITUTE - COMP METABOLIC PANEL - TSH BLD - HGB A1C - CBC + DIFF 4. Depression, unspecified depression type - ICD9: 311, ICD10: F32.A - DULOXETINE 30 MG CAPSULE,DELAYED RELEASE - CONSULT TO [facility]IMARY [facility] ADULT 5. Right foot pain - ICD9: 729.5, ICD10: M79.671 - NAPROXEN 500 MG TABLET - CONSULT TO PODIATRY - XR FOOT GENERAL 3V AP/LAT/OBL RIGHT 6. Numbness of right foot - ICD9: 782.0, ICD10: R20.0 - CONSULT TO PODIATRY - XR FOOT GENERAL 3V AP/LAT/OBL RIGHT 7. Right elbow pain - ICD9: 719.42, ICD10: M25.521 - NAPROXEN 500 MG TABLET 8. Injury of left villarreal, initial encounter - ICD9: 959.7, ICD10: S89.92XA 9. Enlarged testicle - ICD9: 608.89, ICD10: N50.89 - CONSULT TO UROLOGY - US SCROTUM AND CONTENTS - US DOPPLER COMPLETE 10. Nonintractable episodic headache, unspecified headache type - ICD9: 784.0, ICD10: R51.9 - NAPROXEN 500 MG TABLET Grisel Shelton APRN.CNS Medical Decision Making: Problems: Moderate: 2+ stable chronic illnesses Data: Unique test(s) ordered: 3+ Risk: Moderate: Drug management Medical Decision Making Level: 4 - Moderate documented in this encounter [facility] 11-05-2021 History of Presen t illness Narrative This note was created using RMIriter. Subjective Arden Dickson is a 31 year old male. HPI Patient presents with right ear pain times last night. He also developed cough, sore throat and some congestion last night. No fever. His father has bronchitis right now as well. His father tested negative for COVID and influenza. He denies chest pain or shortness of breath. He has not had a fever. He is vaccinated against COVID-19. Denies body aches. He has had some chills. No vomiting or diarrhea. No abdominal pain. Review of Systems Constitutional: Positive for chills. Negative for fatigue and fever. HENT: Positive for congestion, ear pain and sore throat. Negative for ear discharge. Respiratory: Positive for cough. Negative for shortness of breath and wheezing. Cardiovascular: Negative. Gastrointestinal: Negative. Genitourinary: Negative. Musculoskeletal: Negative. All other systems reviewed and are negative. PAST MEDICAL HISTORY Diagnosis Date Asthma an issue in childhood; has not needed treatment as adult Depression HTN (hypertension) Current Outpatient Medications Medication Sig Dispense Refill DULoxetine (CYMBALTA) 30 mg capsule Take 1 capsule by mouth once daily. make increase to one capsule twice daily in 2 to 4 weeks if needed (Patient not taking: Reported on 11/05/2021 ) 60 capsule 5 No current facility-administered medications for this visit. No past surgical history on file. FAMILY HISTORY Problem Relation Age of Onset Coronary Artery Disease Mother age 49yo had 3 stents placed Coronary Artery Disease Maternal Grandfather from heart attack; ?under age 55 Hypertension Mother Hypertension Maternal Grandmother Hypertension Maternal Grandfather Hypertension Maternal Aunt Diabetes Maternal Grandmother Diabetes Maternal Aunt Thyroid Maternal Grandfather Hypothyroidism Thyroid Maternal Aunt Hypothyroidism Thyroid Mother Hypothyroidism Colon Cancer Paternal Grandmother from colon cancer; was diagnosed in her 80's Breast Cancer Paternal Aunt Breast Cancer Paternal Aunt Psychiatry Mother Depression and anxiety runs in the family Psychiatry Father Psychiatry Maternal Grandmother Psychiatry Maternal Grandfather Psychiatry Paternal Grandmother Psychiatry Paternal Grandfather Psychiatry Maternal Aunt Psychiatry Maternal Uncle Psychiatry Paternal Aunt Psychiatry Paternal Uncle Social History Tobacco Use Smoking status: Never Smoker Smokeless tobacco: Never Used Substance Use Topics Alcohol use: Yes Comment: occasionally Drug use: Never Objective BP 138/86 Pulse 90 Temp 36.9 C (98.5 F) Resp 18 Wt (!) 196.9 kg (434 lb) SpO2 97% Physical Exam Vitals reviewed. Constitutional: Appearance: Normal appearance. HENT: Head: Normocephalic and atraumatic. Right Ear: Tympanic membrane, ear canal and external ear normal. There is no impacted cerumen. Left Ear: Tympanic membrane, ear canal and external ear normal. There is no impacted cerumen. Nose: Congestion present. Mouth/Throat: Mouth: Mucous membranes are moist. Pharynx: Oropharynx is clear. Cardiovascular: Rate and Rhythm: Normal rate and regular rhythm. Heart sounds: Normal heart sounds. Pulmonary: Effort: Pulmonary effort is normal. Breath sounds: Normal breath sounds. Musculoskeletal: Cervical back: Neck supple. Lymphadenopathy: Cervical: No cervical adenopathy. Skin: General: Skin is warm and dry. Neurological: General: No focal deficit present. Mental Status: He is alert and oriented to person, place, and time. Assessment and Plan ASSESSMENT/PLAN: 1. Viral URI - ICD9: 465.9, ICD10: J06.9 (primary diagnosis) - Discussed viral etiology and rationale for treatment. - Symptomatic treatment with prn analgesia - Supportive care with fluids and rest - The patient may also use OTC cough and cold meds as needed. - Follow up in 3-5 days if symptoms persist or sooner if worsening of symptoms - COVID WITH FLUA+B, ROUTINE 2. Otalgia of right ear - ICD9: 388.70, ICD10: H92.01 Normal exam, likely eustachian tube dysfunction. Flonase and zyrtec recommended. Followup if not improving with pcp. Mireya Polo PA-C documented in this encounter [facility] 11-05-2021 Instructions Mireya Polo PA-C - 11/05/2021 7:31 PM EDT Zyrtec 10 mg tab daily x 1 week Flonase nasal spray times one week documented in this encounter [facility] Pain in both testicles- Primary Encounter for immunization Need for other specified prophylactic vaccination against single bacterial disease Obesity, Class III, BMI 40-49.9 (morbid obesity) (HCC) Morbid obesity Depression, unspecified depression type Right foot pain Pain in limb Numbness of right foot Right elbow pain Pain in joint, upper arm Injury of left villarreal, initial encounter Enlarged testicle Other specified disorder of male genital organs Nonintractable episodic headache, unspecified headache type documented in this encounter [facility] for referral (narrative)* Diagnostic Procedure Only (Routine) - Pending Review Specialty Diagnoses / Procedures Referred By Deandra hu Referred To Contact XR IMAGING Diagnoses Right foot pain Numbness of right foot Procedures XR FOOT GENERAL 3V AP/LAT/OBL RIGHT RADEX FOOT COMPLETE MINIMUM 3 VIEWS Grisel Shelton APRN.CLINICAL DATA MANAGEMENT DIRECTOR [address] [place] [address] [place] [id number] Referral ID Status Reason Start Date Expiration Date Visits Requested Visits Authorized [id number] Pending Review Auto-Generat ed Referral 02/21/2023 03/22/2024 1 1 * Consult, Test, Treat (Routine) - Authorized Specialty Diagnoses / Procedures Referred By Deandra hu Referred To Contact Podiatry Diagnoses Right foot pain Numbness of right foot Procedures CONSULT TO PODIATRY OFFICE/OUTPATIENT [facility] 60-74 MINUTES Grisel Shelton APRN.CLINICAL DATA MANAGEMENT DIRECTOR [address] [place] [address] Referral ID Status Reason Start Date Expiration Date Visits Requested Visits Authorized [id number] Authorized PCP Requested Referral 02/21/2023 02/21/2024 1 1 * Consult, Test, Treat (Routine) - Authorized Specialty Diagnoses / Procedures Referred By Deandra hu Referred To Contact Diagnoses Obesity, Class III, BMI 40-49.9 (morbid obesity) ([facility]) Procedures CONSULT BARIATRIC/METABOLIC INSTITUTE OFFICE/OUTPATIENT [facility] 60-74 MINUTES Grisel Shelton APRN.CLINICAL DATA MANAGEMENT DIRECTOR [address] [place] [address] Referral ID Status Reason Start Date Expiration Date Visits Requested Visits Authorized [id number] Authorized PCP Requested Referral 02/21/2023 02/21/2024 1 1 * Consult, Test, Treat (Routine) - Authorized Specialty Diagnoses / Procedures Referred By Contac t Referred To Contact Nutrition Diagnoses Obesity, Class III, BMI 40-49.9 (morbid obesity) (HCC) Procedures CONSULT TO NUTRITION THERAPY MEDICAL NUTRITION ASSMT&IVNTJ INDIV EACH 15 FL MEDICAL NUTRITION ASSMT&IVNTJ INDIV EACH 15 FL MEDICAL NUTRITION ASSMT&IVNTJ INDIV EACH 15 FL MEDICAL NUTRITION ASSMT&IVNTJ INDIV EACH 15 FL Grisel Shelton APRN.CLINICAL DATA MANAGEMENT DIRECTOR [address] [place] [address] Referral ID Status Reason Start Date Expiration Date Visits Requested Visits Authorized [id number] Authorized PCP Requested Referral 02/21/2023 02/21/2024 1 1 * Diagnostic Procedure Only (Routine) - Closed Specialty Diagnoses / Procedures Referred By Contac t Referred To Contact US IMAGING Diagnoses Pain in both testicles Enlarged testicle Procedures US DOPPLER COMPLETE DUP-SCAN ARTL SHAKIR ABDL/PEL/SCROT&/RPR ORGN [facility] Grisel Shelton APRN.CLINICAL DATA MANAGEMENT DIRECTOR [address] [place] [address] [place] [id number] Referral ID Status Reason Start Date Expiration Date V isits Requested Visits Authorized [id number] Closed Auto-Generate d Referral 02/21/2023 03/22/2024 1 1 * Diagnostic Procedure Only (Routine) - Closed Specialty Diagnoses / Procedures Referred By Contac t Referred To Contact US IMAGING Diagnoses Pain in both testicles Enlarged testicle Procedures US SCROTUM AND CONTENTS US SCROTUM & CONTENTS Grisel Shelton APRN.CLINICAL DATA MANAGEMENT DIRECTOR [address] [place] [address] [place] [address] Referral ID Status Reason Start Date Expiration Date V isits Requested Visits Authorized [id number] Closed Auto-Generate d Referral 02/21/2023 03/22/2024 1 1 * Consult, Test, Treat (Routine) - Closed Specialty Diagnoses / Procedures Referred By Deandra hu Referred To Contact Urology Diagnoses Pain in both testicles Enlarged testicle Procedures CONSULT TO UROLOGY OFFICE/OUTPATIENT [facility] 60-74 MINUTES rGisel Shelton APRN.CNS [address] [place] [address] Referral ID Status Reason Start Date Expiration Date V isits Requested Visits Authorized [id number] Closed PCP Requested Referral 02/21/2023 02/21/2024 1 1 [facility] Health Concerns Infection Onset Date Last Indicated Resolved Time COVID-19 Rule-Out 11/05/2021 11/05/2021 Summary Purpose Family History No Family History Records Found Advance Directives No Advanced Directives Records Found Additional Source Comments Source Comments (unrecognize d section and content) In the event this informatio n is protected by the Federal Confidentiality of Alcohol and Drug Abuse Patient Records regulations: The Federal rules restrict any use of the information to criminally investigate or prosecute any alcohol or drug abuse patient.[facility] the event this information is protected by the Federal Confidentiality of Alcohol and Drug Abuse Patient Records regulations: The Federal rules restrict any use of the information to criminally investigate or prosecute any alcohol or drug abuse patient.[facility] the event this information is protected by the Federal Confidentiality of Alcohol and Drug Abuse Patient Records regulations: The Federal rules restrict any use of the information to criminally investigate or prosecute any alcohol or drug abuse patient.[facility] the event this information is protected by the Federal Confidentiality of Alcohol and Drug Abuse Patient Records regulations: The Federal rules restrict any use of the information to criminally investigate or prosecute any alcohol or drug abuse patient.[facility] Reason for Visit (unrecogniz ed section and content) Reason Comments consult Reason Comments Yearly Exam Care Teams (unrecognized sec tion and content) Pipe Wrapping Machine Operator Relationship Specialty Start Date End Date Rob Corado MD [address] [place] [address] PCP - General Internal Medicine 09/18/12 Pipe Wrapping Machine Operator Relationship Specialty Start Date End Date Rob Corado MD [address] [place] [address] PCP - General Internal Medicine 09/18/12 Pipe Wrapping Machine Operator Relationship Specialty Start Date End Date Rob Corado MD [address] [facility] [place] [id number] PCP - General Internal Medicine 09/18/12 (unrecognized sect ion and content) No Status Records Found INFORMATION SOURCE (unrecogn ized section and content) FOR RECORDS PERTAINING TO PATIENTS WHO ARE OR HAVE BEEN ENROLLED IN A CHEMICAL DEPENDENCY/SUBSTANCEABUSE PROGRAM, SOME INFORMATION MAY BE OMITTED. This clinical summary was aggregated from multiple sources. Caution should be exercised in using it in the provision of clinical care. This summary normalizes information from multiple sources, and as a consequence, information in this document may materially change the coding, format and clinical context of patient data. In addition, data may be omitted in some cases. CLINICAL DECISIONS SHOULD BE BASED ON THE PRIMARY CLINICAL RECORDS. [employer] [facility]. provides no warranty or guarantee of the accuracy or completeness of information in this document.
== END 2023-07-25 17:36 | disposition home or self-care (01) ==
PROVIDERS: Emergency Provider Student in an Organized Health Care Education/Training Program; PCP Internal Medicine; Visit Provider Student in an Organized Health Care Education/Training Program
DX: R55 Syncope and collapse (principal)
CPT/HCPCS: 71045; 80048; 84484; 85025; 93005; 99285; A4216

== ENCOUNTER 2024-12-27 15:34 | Emergency (ER) | payer OTHER, SELFPAY ==
[2024-12-27 15:35] VITALS: BP 172/103; PULSE 111; RESP 18; TEMP 36.2; O2SAT 97
[2024-12-27 15:51] VITALS: BMI 70.2
[2024-12-27] MEDS: Diphth,Pertuss(Acell),Tet Vac 0.5 ML Vial IM (16:21)
--- NOTE | 2024-12-27 16:25 | EX.ED.UPPERE ---
HPI History of Present Illness HPI Narrative: Presents with an electrical burn to his left fifth finger that occurred today. Patient states he was working on a dryer when the his finger touched something electrical. Patient felt a burning and shocking sensation. Patient denies any paresthesias or weakness. Patient denies any other injuries. Patient is unsure of his last tetanus. Patient noted to white areas over the palmar aspect of the distal phalanx of his left fifth finger. Chief Complaint: Other, Pain/Inj Informant: patient Occured/Mechanism Mechanism/Context: Yes burn Burn: electric Onset/Context/Timing Onset: Today Context: Sudden Onset Timing: Continuous Quality of Pain: Dull Location: Left little finger Worsened by: Nothing Relieved by: Nothing Associated Symptoms Associated Symptoms: Negative for Parasthesia, Weakness or Loss of Funtion Narrative Tetanus Immunization: Unknown [facility] Medical History Shortness of breath Hypertension Home Medications ?Medication ?Instructions ?Recorded ?Last Taken ?Type duloxetine 30 mg capsule,delayed 30 mg PO DAILY 01/31/21 Unknown History release Allergy/AdvReac Type Severity Reaction Status Date / Time amoxicillin AdvReac Nausea/Vom/ Verified 12/27/24 15:35 Diarrhea Surgical History no surgical history no surgical history Social History Smoking Status: Never smoker ROS ROS ED Constitutional Constitutional ED: Denies chills or fever(s) Eyes Eyes: Denies blurry vision or change in vision ENT ENT ED: Denies rhinorrhea or sore throat Cardiovascular Cardiovascular: Denies chest pain or palpitations Respiratory/Chest Respiratory/Chest: Denies cough or dyspnea Gastrointestinal Gastrointestinal: Denies nausea or vomiting Genitourinary Genitourinary ED: Denies dysuria or hematuria Musculoskeletal Musculoskeletal: Denies back pain or neck pain Integumentary Denies abscess or rash Neurologic Neurologic: Denies headache(s) or weakness Allergic/Immunologic Allergic/Immunologic ED: Denies mouth swelling or urticaria EXAM Physical Exam Const Vital Signs: 12/27/24 15:35 12/27/24 15:52 Temperature 97.2 F L Temperature Source Temporal Pulse Rate 111 H Respiratory Rate 18 Respiratory Effort Normal Non-Labored Respiratory Pattern Normal Blood Pressure 172/103 H Blood Pressure Mean 126 Pulse Ox 97 Oxygen Delivery Method Room Air Positive well nourished and well developed General Appearance ED: well developed and NAD HEENT Reports moist mucous membranes Neck full ROM and supple Extremity Extremity Narrative: There are 2 small burn areas on the palmar aspect of the distal phalanx of the left little finger. There is sensation to light touch in all areas of the larose. There is full range of motion of the MP, PIP, and DIP joints of the left little finger. Capillary refill was less than 2 seconds in all digits. Radial pulses are equal bilaterally. Neuro oriented x3, CN's II-XII intact bilaterally, moves all extremities, no focal motor deficits and no sensory deficits noted Sensorium / Orientation: alert Motor Exam: strength 5/5 throughout Psych mental status grossly normal MDM MDM MDM Narrative Medical decision making narrative: Patient was given a tetanus booster. Bacitracin dressings were applied to the left little finger. Patient was instructed to keep the wounds clean and dry. Patient instructed to take Tylenol or ibuprofen as needed for pain. Patient was instructed to follow-up with his primary care physician in 5 to 7 days. Patient understood and was agreeable with the plan. All questions were answered. Discharge Plan Triage Chief Complaint: Other, Pain/Inj ED Provider: Rubén Martinez Dx/Rx/DC Orders Clinical Impression: Second degree burn of finger of left hand, Electrical burn of skin Instructions: ED Electrical Injury, ED Burn, Second-Degree Prescriptions: No Action duloxetine 30 mg capsule,delayed release(DR/EC) 30 mg PO DAILY Patient Comments: TAKE 1 CAPSULE BY MOUTH ONCE DAILY MAY INCREASE TO 1 CAPSULE TWICE DAILY IN 2 4 WEEKS IF NEEDED Primary Care Provider: Dariela Corado Referrals: Dariela Corado MD [Primary Care Provider] - 3-5 Days Print Language: Martiniquais Disposition Disposition: Home, Self Care
[2024-12-27 16:56] VITALS: BP 169/89; PULSE 72; RESP 18; TEMP 36.8; O2SAT 100
--- OUTSIDE RECORDS SUMMARY | 2024-12-27 21:24 | XMS RPT_ITS | CCD ---
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 2 [facility] Start: 07-15-2020 History SDOH Alcohol Comment occasionally [facility] Start: 08-14-2020 History SDOH Social Connections Phone 5 [facility] Start: 08-14-2020 History SDOH Social Connections Meetings 98 [facility] Start: 08-14-2020 History SDOH Social Connections Living 7 [facility] Start: 08-14-2020 History SDOH Stress 3 [facility] Start: 08-13-2020 Education 16 [facility] Start: 1990 Sex Assigned At Male [facility] Start: 02-14-2023 End: 03-01-2023 History of Social function [facility] Start: 02-14-2023 End: 03-01-2023 Social connection and isolation panel [facility] Do you belong to any clubs or organizations such as orthodox groups, unions, fraternal or athletic groups, or school groups? Yes [facility] Are you now , , , , never or living with a partner? Never [facility] How often to you hav e a drink containing alcohol? Monthly or less [facility] How many standard dr inks containing alcohol do you have on a typical day? 1 or 2 [facility] How often do you hav e 6 or more drinks on 1 occasion? Never [facility] How hard is it for y ou to pay for the very basics like food, housing, medical care, and heating Not very hard [facility] Adult Depression Screening Assessment 2 [facility] Do you feel stress - tense, restless, nervous, or anxious, or unable to sleep at night because your mind is troubled all the time - these days [OSQ] To some extent [facility] (I/We) worried wheth er (my/our) food would run out before (I/we) got money to buy more. Sometimes true [facility] In the past 12 month s, was there a time when you were not able to pay the mortgage or rent on time? No [facility] Start: 08-14-2020 Gender identity Identifies as male gender (finding) [facility] Start: 08-14-2020 Sexual orientation Homosexual (finding) [facility] Start: 07-25-2023 Tobacco smoking status NHIS Unknown if ever smoked [facility] Start: 03-01-2023 Alcoholic beverage intake Ex-drinker (finding) [facility] Mental Status Date Assessment Result Facility 12-27-2024 Cognitive function Level Of Cons ciousness Awake;Alert;Appropriate;Follow s Commands [facility] Work Phone: 07-25-2023 Cognitive function Level Of Cons ciousness Awake;Alert;Appropriate;Follow s Commands [facility] Work Phone: History of Present illness Narrative 02-28-2023 Afua Nguyen LPCC - 02/28/2023 8:51 AM EDT Note Date & Type Note Facility 02-28-2023 History of Presen t illness Narrative Behavioral Health Social Work Progress Note Patient identified for [facility] from: PCP Reason for referral: [facility] Behavioral Health Resources: Psychology - talk therapy [facility] encounter type: [employer] Message Attempts to Outreach: 3 attempts Referral made: Psychology - Internal, Psychology - External Psychology-Internal referral type: Therapy Psychology-External referral type: Therapy Reason for external referral: Wait times at [facility] too long, Patient choice Final Disposition: Resources given Patient Discharged?: Yes Patient reported that caregiver was able to meet their needs today?: N/A therapist sent patient [employer] follow up message offering assistance with linkage to behavioral health services. HEIKE Paulson February 28, 2023 documented in this encounter [facility] Note 02-21-2023 Telephone Encounter - Afua Nguyen LPCC - 02/21/2023 10:56 AM EDT Note Date & Type Note Facility 02-21-2023 Miscellaneous Notes Formattin g of this note might be different from the original. Behavioral Health Social Work Progress Note Patient identified for [facility] from: PCP Reason for referral: [facility] Behavioral Health Resources: Psychology - talk therapy [facility] encounter type: Telephone Encounter Attempts to Outreach: 1 attempt Referral made: Psychology - Internal, Psychology - External Psychology-Internal referral type: Therapy Psychology-External referral type: Therapy Patient Discharged?: No Patient reported that caregiver was able to meet their needs today?: N/A Phone call placed today that went to [facility]. Left my contact information and brief nature of call. Initial outreach also completed via [employer] sending list of in network providers with insurance. HEIKE Paulson February 21, 2023 documented in this encounter [facility] History of Present illness Narrative 02-21-2023 Grisel Shelton APRN.CATH LAB TECH - 02/21/2023 8:00 AM EDT Note Date & Type Note Facility 02-21-2023 History of Presen t illness Narrative [...] exam. Current PCP:no current last seen by punching machine operator Last seen: about 10 years ago,[facility] physicians Last labs: several years ~ 5 [...] advised to have this removed by his punching machine operator. He notes recently mole is changed, no change in color. Notes weight gain. Standard Martiniquais diet. Does consume junk food and soda. [...] activity. Helped with Tylenol. Reports a left rosales injury 2 years ago which recently opened up with following a sunburn. All screening labs completed at [facility] December 2022. Review of Systems Constitutional: Positive for unexpected weight change. Respiratory: Negative. Cardiovascular: Negative. Endocrine: Negative. Psychiatric/Behavioral: Positive for dysphoric mood. Objective BP 132/82 Resp 16 Ht 179.1 cm (5' 10.5) Wt (!) 202.3 kg (446 lb) BMI [...] Abs Lymph 1.00 - 4.00 k/uL 1.25 Brown% % 8.2 Abs Brown <0.87 k/uL 0.40 Eosin% % 3.5 Abs [...] VACCINE, AGE 7+ YR (ADACEL, BOOSTRIX) - [employer] COVID-19 BIVALENT VACCINE, AGE 12+ YR - [...] 500 MG TABLET 8. Injury of left rosales, initial encounter - ICD9: 959.7, ICD10: S89.92XA 9. Enlarged testicle - ICD9: 608.89, ICD10: N50.89 - CONSULT TO UROLOGY - US SCROTUM AND CONTENTS - US DOPPLER COMPLETE 10. Nonintractable episodic headache, unspecified headache type - ICD9: 784.0, ICD10: R51.9 - NAPROXEN 500 MG TABLET Grisel Shelton APRN.CATH LAB TECH Medical Decision Making: Problems: Moderate: 2+ stable chronic illnesses Data: Unique test(s) ordered: 3+ Risk: Moderate: Drug management Medical Decision Making Level: 4 - Moderate documented in this encounter [facility] History of Present illness Narrative 11-05-2021 Mireya Polo PA-C - 11/05/2021 7:34 PM EDT Note Date & Type Note Facility 11-05-2021 History of Presen t illness Narrative This note was created using Scheduling Employee Scheduling Softwareriter. Subjective Arden Dcikson is a 31 year old male. HPI [...] Mireya Polo PA-C documented in this encounter [facility] Instructions 11-05-2021 Patient Instructions Note Date & Type Note Facility 11-05-2021 Instructions Mireya Polo PA-C - 11/05/2021 7:31 PM EDT Zyrtec 10 mg tab daily x 1 week Flonase nasal spray times one week documented in this encounter [facility] Evaluation note Note Date & Type Note Facility Evaluation note Diagnosis Viral URI- Primary Acute upper respiratory infections of unspecified site Otalgia of right ear Otalgia, unspecified documented in this encounter [facility] Evaluation note Note Date & Type Note Facility Evaluation note Diagnosis Pain in both testicles- Primary Encounter for immunization Need for other specified prophylactic vaccination against single bacterial disease Obesity, Class III, BMI 40-49.9 (morbid obesity) ([facility]) Morbid obesity Depression, unspecified depression type Right foot pain Pain in limb Numbness of right foot Right elbow pain Pain in joint, upper arm Injury of left rosales, initial encounter Enlarged testicle Other specified disorder of male genital organs Nonintractable episodic headache, unspecified headache type documented in this encounter [facility] Evaluation note Note Date & Type Note Facility Evaluation note No assessment information availa [facility] Work Phone: Reason for referral (narrative) Diagnostic Procedure Only (Routine) - Pending Review Note Date & Type Note Facility Reason for referral (narrati ve) Specialty Diagnoses / Procedures Referred By Contac t Referred To Contact XR IMAGING Diagnoses Right foot pain Numbness of right foot Procedures XR FOOT GENERAL 3V AP/LAT/OBL RIGHT RADEX FOOT COMPLETE MINIMUM 3 VIEWS Grisel Shelton APRN.CATH LAB TECH [address] [place] [address] [place] [address] Referral ID Status Reason Start Date Expiration Date Visits Requested Visits Authorized [id number] Pending Review Auto-Generat ed Referral 02/21/2023 03/22/2024 1 1 * Consult, Test, Treat (Routine) - Authorized Specialty Diagnoses / Procedures Referred By Contac t Referred To Contact Podiatry Diagnoses Right foot pain Numbness of right foot Procedures CONSULT TO PODIATRY OFFICE/OUTPATIENT [facility] 60-74 MINUTES Grisel Shelton APRN.CATH LAB TECH [address] [place] [address] Referral ID Status Reason Start Date Expiration Date Visits Requested Visits Authorized [id number] Authorized PCP Requested Referral 02/21/2023 02/21/2024 1 1 * Consult, Test, Treat (Routine) - Authorized Specialty Diagnoses / Procedures Referred By Contac t Referred To Contact Diagnoses Obesity, Class III, BMI 40-49.9 (morbid obesity) (HCC) Procedures CONSULT BARIATRIC/METABOLIC INSTITUTE OFFICE/OUTPATIENT [facility] 60-74 MINUTES Grisel Shelton APRN.CATH LAB TECH [address] [place] [address] Referral ID Status Reason Start Date Expiration Date Visits Requested Visits Authorized [id number] Authorized PCP Requested Referral 02/21/2023 02/21/2024 1 1 * Consult, Test, Treat (Routine) - Authorized Specialty Diagnoses / Procedures Referred By Contac t Referred To Contact Nutrition Diagnoses Obesity, Class III, BMI 40-49.9 (morbid obesity) (HCC) Procedures CONSULT TO NUTRITION THERAPY MEDICAL NUTRITION ASSMT&IVNTJ INDIV EACH 15 TN MEDICAL NUTRITION ASSMT&IVNTJ INDIV EACH 15 TN MEDICAL NUTRITION ASSMT&IVNTJ INDIV EACH 15 TN MEDICAL NUTRITION ASSMT&IVNTJ INDIV EACH 15 TN Grisel Shelton APRN.CATH LAB TECH [address] [place] [address] Referral ID Status Reason Start Date Expiration Date Visits Requested Visits Authorized [id number] Authorized PCP Requested Referral 02/21/2023 02/21/2024 1 1 * Diagnostic Procedure Only (Routine) - Closed Specialty Diagnoses / Procedures Referred By Contac t Referred To Contact US IMAGING Diagnoses Pain in both testicles Enlarged testicle Procedures US DOPPLER COMPLETE DUP-SCAN ARTL SHAKIR ABDL/PEL/SCROT&/RPR ORGN [facility] Grisel Shelton APRN.CATH LAB TECH [address] [place] [address] [place] [address] Referral ID Status Reason Start Date Expiration Date V isits Requested Visits Authorized [id number] Closed Auto-Generate d Referral 02/21/2023 03/22/2024 1 1 * Diagnostic Procedure Only (Routine) - Closed Specialty Diagnoses / Procedures Referred By Contac t Referred To Contact US IMAGING Diagnoses Pain in both testicles Enlarged testicle Procedures US SCROTUM AND CONTENTS US SCROTUM & CONTENTS Grisel Shelton APRN.CATH LAB TECH [address] [place] [address] [place] [address] Referral ID Status Reason Start Date Expiration Date V isits Requested Visits Authorized [id number] Closed Auto-Generate d Referral 02/21/2023 03/22/2024 1 1 * Consult, Test, Treat (Routine) - Closed Specialty Diagnoses / Procedures Referred By Deandra t Referred To Contact Urology Diagnoses Pain in both testicles Enlarged testicle Procedures CONSULT TO UROLOGY OFFICE/OUTPATIENT NEW HIGH MDM 60-74 MINUTES Grisel Shelton APRN.CNS [address] [place] [address] Referral ID Status Reason Start Date Expiration Date V isits Requested Visits Authorized [id number] Closed PCP Requested Referral 02/21/2023 02/21/2024 1 1 [facility] Reason for referral (narrative) Note Date & Type Note Facility Reason for referral (narrative) No reason for referral information available [facility] Work Phone: Health Concerns Infection Onset Date Last Indicated Resolved Time COVID-19 Rule-Out 11/05/2021 11/05/2021 Chief Complaint and Reason for Visit Chief Complaint SYNCOPE Chief Complaint Admit Date ELECTROCUTED BY A DRYER December 27, 2024 3:34pm Advance Directives Advance Directive Response Recorded Date/ Time Living Will No July 25 5:08pm Power of Manufacturing Coordinator No July 25 024 5:08pm Advance Directive Response Recorded Date/ Time Do you have a Healthcare Power of Manufacturing Coordinator? No December 27, 2024 3:52pm Summary Purpose Family History No Family History Records FoundNo Family History Records Found Additional Source Comments Source Comments (unrecognize d section and content) In the event this informatio n is protected by the Federal Confidentiality of Alcohol and Drug Abuse Patient Records regulations: The Federal rules restrict any use of the information to criminally investigate or prosecute any alcohol or drug abuse patient.[facility] the event this information is protected by the Federal Confidentiality of Alcohol and Drug Abuse Patient Records regulations: The Federal rules restrict any use of the information to criminally investigate or prosecute any alcohol or drug abuse patient.[facility] the event this information is protected by the Federal Confidentiality of Alcohol and Drug Abuse Patient Records regulations: The Federal rules restrict any use of the information to criminally investigate or prosecute any alcohol or drug abuse patient.[facility] the event this information is protected by the Federal Confidentiality of Alcohol and Drug Abuse Patient Records regulations: The Federal rules restrict any use of the information to criminally investigate or prosecute any alcohol or drug abuse patient.[facility] the event this information is protected by the Federal Confidentiality of Alcohol and Drug Abuse Patient Records regulations: The Federal rules restrict any use of the information to criminally investigate or prosecute any alcohol or drug abuse patient.[facility] Reason for Visit (unrecogniz ed section and content) Reason Comments Ear Pain right x last night Reason Comments bh consult Reason Comments Yearly Exam Care Teams (unrecognized sec tion and content) Certified Procedural Coder Relationship Specialty Start Date End Date Dariela Corado MD [address] [place], [place] [address] PCP - General Internal Medicine 09/18/12 Certified Procedural Coder Relationship Specialty Start Date End Date Dariela Corado MD [address] [place], [place] [id number] PCP - General Internal Medicine 09/18/12 Certified Procedural Coder Relationship Specialty Start Date End Date Dariela Corado MD [address] [place], [place] [id number] PCP - General Internal Medicine 09/18/12 Certified Procedural Coder Relationship Specialty Start Date End Date Dariela Corado MD [address] [place], [place] [id number] PCP - General Internal Medicine 09/18/12 Team Status: Active Member Role Status Dates No Primary Care Physician Family Provider Active Dr. Dariela Corado MD Primary Care Provider Active Team Status: Inactive Member Role Status Dates Dr. Dariela Corado MD Primary Care Provider Active Dr. Mark Verdugo DO Emergency Provider Active Team Status: Active Member Role Status Dates Dr. Dariela Corado MD Primary Care Provider Active Team Status: Inactive Member Role Status Dates Dr. Dariela Corado MD Primary Care Provider Active Start: December 27, 2024 End: December 27, 2024 Dr. Rubén Martinez DO Emergency Provider Active Start: December 27, 2024 End: December 27, 2024 Goals (unrecognized section and content) Goals may be documented in a n alternate sectionGoals may be documented in an alternate section (unrecognized sect ion and content) No Status Records FoundNo Status Records Found INFORMATION SOURCE (unrecogn ized section and content) DATE CREATED AUTHOR 04/15/2024 [facility] DATE CREATED AUTHOR AUTHORTatyana WATERS 09/03/2024 [facility] FOR RECORDS PERTAINING TO PATIENTS WHO ARE [...] BE BASED ON THE PRIMARY CLINICAL RECORDS. [facility] [employer] provides no warranty or guarantee of the accuracy or completeness of information in this document.
== END 2024-12-27 17:00 | disposition home or self-care (01) ==
PROVIDERS: Emergency Provider Emergency Medicine; PCP Internal Medicine; Visit Provider Emergency Medicine
DX: T23.222A Burn of second degree of single left finger (nail) except thumb, initial encounter (principal); I10 Essential (primary) hypertension; W86.8XXA Exposure to other electric current, initial encounter; Z23 Encounter for immunization
CPT/HCPCS: 90715; 99283